=== PATIENT | male | born 1980 | race Caucasian/White ===

== ENCOUNTER → 2017-04-23 | Outpatient (CLI) | payer OTHER | END | disposition home or self-care (01) | LOC: PF 09:56 | PROVIDERS: ATTEND Surgery | DX: J44.9 Chronic obstructive pulmonary disease, unspecified (principal); I10 Essential (primary) hypertension; M48.06 Spinal stenosis, lumbar region; F43.10 Post-traumatic stress disorder, unspecified; F41.9 Anxiety disorder, unspecified; F31.9 Bipolar disorder, unspecified | CPT/HCPCS: 94060; 94729 ==

== ENCOUNTER 2017-05-14 17:34 | Emergency (ER) | payer OTHER ==
[~2017-05-14] VITALS: Ht 182.9 cm; Wt 104.3 kg
[2017-05-14] MEDS ORDERED: IV NORMAL SALINE 1000ML BAG 1,000 ML IV SCH (17:47)
[2017-05-14 17:58] LABS: BASO # 0.1 x10^3/uL (0.0-0.2); BASO % 1 % (0-3); EOS % 0 % (0-3); HEMATOCRIT 41.4 % (39.0-53.0); HEMOGLOBIN 13.5 g/dL (13.0-17.5); LYMPH % 6 % (24-48); MEAN CORPUSCULAR HEMOGLOBIN 25 pg (25-35); MEAN CORPUSCULAR HGB CONC 33 g/dL (31-37); MEAN CORPUSCULAR VOLUME 77 fL (79-100); MONO % 3 % (0-9); NEUT % 91 % (31-73); PLATELET COUNT 324 x10^3/uL (140-400); RED CELL DISTRIBUTION WIDTH 15.3 % (11.5-14.5); WHITE BLOOD COUNT 16.8 x10^3/uL (4.0-11.0)
[2017-05-14] MEDS ORDERED: 0.9 % SODIUM CHLORIDE 10 ML DISP.SYRIN. IV PRN (18:00)
--- NOTE | 2017-05-14 18:00 | PHYS DOC ---
Past Medical History Additional Past Medical Histor: history of psychiatric illness, prior history of pulmonary most him Past Surgical History: Lumbar Laminectomy Additional Past Surgical Histo: patient claims she's had surgical removal of saddle embolus Smoking: Quit Greater Than 1 Year Alcohol Use: None Drug Use: None, Opiates Adult General Chief Complaint Chief Complaint: SUBSTANCE ABUSE HPI GLYNN Whaley is a 36-year-old male with a history of chronic back pain as well as chronic psychiatric illness on lithium, lisinopril, clonazepam, diazepam, and warfarin who presents with difficulty being aroused today while at home. He does have a history according to the family of opiate abuse in the past. When EMS arrived to the scene they immediately gave him Narcan which took him from a GCS of 32 GCS of 15. Patient immediately became tachycardic and mildly diaphoretic and very agitated. The patient denies any opiate abuse he is still taking oral hydrocodone for his back pain. He denies missed taking or taking any extra today. He denies any abdominal pain, or eye symptoms, fevers, chills but he does admit to some nausea without vomiting diarrhea without loose mucus or blood. Patient denies any drug abuse. He is been taking his medications religiously has any change of urinary output. My differential diagnosis for this altered mental status includes but not limited to toxidrome secondary to lithium, opiate overdose, polypharmacy drug abuse, hypoxia, tachycardia dysrhythmia, bradycardia dysrhythmia, close head injury, recurrent pulmonary PE, medication abuse, medication side effect, hypoglycemia, upper glycemia accommodations of hyperglycemia. Bradycardia, hypotension, and SUPERVISING FILM OR VIDEOTAPE EDITOR infection. His father and his arrived later in the afternoon to provide more history. The patient has barely been at the home in care of the kids but the air conditioning spelled out. The via mini denies that he's been taking extra medications in fact they Take him off all narcotics altogether. He's never had a liver problem before he does not drink alcohol is not had an issue with changes in medications. Family denies recent trauma. They did note that her last several days has become increasingly sleepy. Review of Systems Review of Systems Constitutional: Denies fever or chills [] Eyes: Denies change in visual acuity, redness, or eye pain [] HENT: Denies nasal congestion or sore throat [] Respiratory: Denies cough or shortness of breath [] Cardiovascular: No additional information not addressed in HPI [] GI he does complain of nausea without vomiting diarrhea without blood in the stools. : Denies dysuria or hematuria [] Musculoskeletal: He Complains of chronic lower back pain or typically treats with oral narcotics. Integument: Denies rash or skin lesions [] Neurologic: Denies headache, focal weakness or sensory changes [] Endocrine: Denies polyuria or polydipsia [] Current Medications Current Medications Current Medications Medications (Trade) Dose Ordered Sig/Praneeth Start Time Stop Time Status Last Admin Dose Admin Enoxaparin Sodium (Lovenox 100mg Syringe) 100 mg 1X ONCE 05/14/17 20:45 05/14/17 20:46 UNV Lactulose 20 gm PRN DAILY PRN 05/14/17 19:15 05/14/17 20:03 20 GM Sodium Chloride 1,000 ml @ 125 mls/hr 1X ONCE 05/14/17 19:30 05/15/17 03:29 05/14/17 20:03 125 MLS/HR Sodium Chloride (Normal Saline Flush) 10 ml QSHIFT PRN 05/14/17 18:00 Allergies Allergies Allergies Coded Allergies Type Severity Reaction Last Updated Verified tramadol Allergy Severe 05/14/17 Yes Physical Exam Physical Exam He is noted to be mildly tachypnea tachycardic Constitutional: Patient is obese poorly nourished dry on appearance he seems intoxicated but easily arousable. HENT: Normocephalic, atraumatic, bilateral external ears normal, oropharynx is very dry no oral exudates, nose normal. [] Eyes: PERRLA, EOMI, conjunctiva normal, no discharge. [] Neck: Normal range of motion, no tenderness, supple, no stridor. [] Cardiovascular:Heart rate regular rhythm, no murmur [] Lungs & Thorax: Bilateral breath sounds clear to auscultation [] Abdomen: Bowel sounds normal, soft, no tenderness, no masses, no pulsatile masses. [] Skin: Warm, dry, no erythema, no rash. Patient has multiple injuries and wounds to his lower legs bilaterally. In various states of healing Back: No tenderness, no CVA tenderness. [] Extremities: No tenderness, no cyanosis, no clubbing, ROM intact, no edema. [] Neurologic: Alert and oriented X 3, normal motor function, normal sensory function, no focal deficits noted. [] Psychologic patient is very slow to respond he has a depressed affect Current Patient Data Vital Signs Vital Signs Date Time Temp Pulse Resp B/P (MAP) Pulse Ox O2 Delivery O2 Flow Rate FiO2 05/14/17 17:34 99.4 140 16 131/64 (86) 93 Room Air 99.4 Lab Values Laboratory Tests Test 05/14/17 17:45 05/14/17 18:02 05/14/17 19:50 White Blood Count 16.8 x10^3/uL (4.0-11.0) H Red Blood Count 5.40 x10^6/uL (4.30-5.70) Hemoglobin 13.5 g/dL (13.0-17.5) Hematocrit 41.4 % (39.0-53.0) Mean Corpuscular Volume 77 fL (79-100) L Mean Corpuscular Hemoglobin 25 pg (25-35) Mean Corpuscular Hemoglobin Concent 33 g/dL (31-37) Red Cell Distribution Width 15.3 % (11.5-14.5) H Platelet Count 324 x10^3/uL (140-400) Neutrophils (%) (Auto) 91 % (31-73) H Lymphocytes (%) (Auto) 6 % (24-48) L Monocytes (%) (Auto) 3 % (0-9) Eosinophils (%) (Auto) 0 % (0-3) Basophils (%) (Auto) 1 % (0-3) Neutrophils # (Auto) 15.2 x10^3uL (1.8-7.7) H Lymphocytes # (Auto) 1.0 x10^3/uL (1.0-4.8) Monocytes # (Auto) 0.5 x10^3/uL (0.0-1.1) Eosinophils # (Auto) 0.0 x10^3/uL (0.0-0.7) Basophils # (Auto) 0.1 x10^3/uL (0.0-0.2) Segmented Neutrophils % 57 % (35-66) Band Neutrophils % 23 % (0-9) H Lymphocytes % 13 % (24-48) L Monocytes % 5 % (0-10) Eosinophils % 1 % (0-5) Myelocytes % 1 % (0-0) H Platelet Estimate Adequate (ADEQUATE) Microcytosis Slight Prothrombin Time 21.4 SEC (11.7-14.0) H Prothrombin Time INR 2.0 (0.8-1.1) H PTT 49 SEC (24-38) H Sodium Level 140 mmol/L (136-145) Potassium Level 3.7 mmol/L (3.5-5.1) Chloride Level 102 mmol/L (98-107) Carbon Dioxide Level 25 mmol/L (21-32) Anion Gap 13 (6-14) Blood Urea Nitrogen 10 mg/dL (8-26) Creatinine 1.9 mg/dL (0.7-1.3) H Estimated GFR (Cockcroft-Gault) 39.9 BUN/Creatinine Ratio 5 (6-20) L Glucose Level 270 mg/dL (70-99) H Calcium Level 9.1 mg/dL (8.5-10.1) Magnesium Level 2.0 mg/dL (1.8-2.4) Total Bilirubin 0.3 mg/dL (0.2-1.0) Aspartate Amino Transferase (AST) 83 U/L (15-37) H Alanine Aminotransferase (ALT) 83 U/L (16-63) H Alkaline Phosphatase 81 U/L (46-116) Ammonia 61 mcmol/L (11-34) H Total Protein 7.2 g/dL (6.4-8.2) Albumin 3.8 g/dL (3.4-5.0) Albumin/Globulin Ratio 1.1 (1.0-1.7) Salicylates Level < 2.8 mg/dL (2.8-20.0) L Salicylate Last Dose Date Salicylate Last Dose Time Acetaminophen Level < 2 mcg/ml (10-30) L Acetaminophen Last Dose Date Acetaminophen Last Dose Time [place] Level < 0.2 mmol/L (0.6-1.2) L [place] Last Dose Date [place] Last Dose Time Ethyl Alcohol Level < 10 mg/dL (0-10) Urine Collection Type Unknown Urine Color Yellow Urine Clarity Clear Urine pH 5.0 Urine Specific [place] 1.010 Urine Protein 30 mg/dL (NEG-TRACE) Urine Glucose (UA) 100 mg/dL (NEG) Urine Ketones (Stick) Negative mg/dL (NEG) Urine Blood Negative (NEG) Urine Nitrite Negative (NEG) Urine Bilirubin Negative (NEG) Urine Urobilinogen Dipstick 0.2 mg/dL (0.2 mg/dL) Urine Leukocyte Esterase Negative (NEG) Urine RBC 0 /HPF (0-2) Urine WBC 1-4 /HPF (0-4) Urine Transitional Epithelial Cells Few /LPF Urine Bacteria 0 /HPF (0-FEW) Urine Hyaline Casts Moderate /HPF Urine Granular Casts Few /HPF Urine Mucus Mod /LPF Urine Opiates Screen Neg (NEG) Urine Methadone Screen Neg (NEG) Urine Barbiturates Neg (NEG) Urine Phencyclidine Screen Neg (NEG) Urine Amphetamine/Methamphetamine Neg (NEG) Urine Benzodiazepines Screen Neg (NEG) Urine Cocaine Screen Neg (NEG) Urine Cannabinoids Screen Neg (NEG) Urine Ethyl Alcohol Neg (NEG) Lactic Acid Level 1.8 mmol/L (0.4-2.0) Laboratory Tests 05/14/17 17:45 Laboratory Tests 05/14/17 17:45 EKG EKG [] KG timed 1738 05/14/[address] Navarro demonstrated heart rate of 143 looks like sinus tachycardia to me with P waves and QRS there is normal QT is 326 QTC is elevated at 509. There is some nonspecific ST segment depression in the anterior leads specifically lead to V2 V3 is may be rate related. Radiology/Procedures Radiology/Procedures [] Course & Med Decision Making Course & Med Decision Making Pertinent Labs and Imaging studies reviewed. (See chart for details) arrival altered mental status was originally treated to polypharmacy upper dose possibly opiates. But after history and physical findings I'm concerned more of an encephalopathic appearance. All patient is unable to give me much history as I will complete a CAT scan. Time is now 7:10 PM family's vital signs were improved with fluids his tachycardia down from 140-108 he'll be given more fluids. His oral dehydration seems improved. His mentation is also improved it is apparent that his ammonia levels elevated at 61 which could be concerning to his symptoms. He is taking healthy a mildly elevated as well although there is no obvious signs of hepatic failure. Patient's BUN/creatinine also mildly elevated likely secondary to the heat exposure he suffered from the last 2 days with house that was not well air condition. Patient normally drinks 6-8 glasses of lemon water daily but the has noted that he had not been consuming as much lately. Concern for lithium toxicity lithium level is actually below measurable level is not likely to bring to his symptoms. At this time we will dose of lactulose to see if that improves his mentation completed a head CT and admitted to the hospital until his encephalopathy improved. He's had no documented fever we may need to initiate a lumbar puncture to ensure that there is no infectious etiology causing his mentation changes. On physical exam he does not demonstrate a Kernig's or Burzynski sign although that is not sensitive and specific to rule out meningitis. []Sorting Livestock Worker note: Internal medicine Sorting Livestock Worker called at of the service 7:10 Consult called back at 7:12 PM Discussed the case I presented and they agreed with admission. Time of acceptance 7:12. At approximate 720 despite discussion of an inpatient admission family is asked to transfer this patient to . Primary reason is at all this medications and medical problems and addressed in the past at and they would prefer to go there. Apparently during the transportation via EMS from the home EMS told the family that we would stabilize the patient in transfer at their instruction to . I subsequently do not problem with this patient as he was stabilized vital signs were improved he still somewhat somnolent. He is going to get the lactulose and a CT scan of his head and chest x-ray before leaving. I'm is now [id number] transfer center as been contacted for transfer. He is transferred to call me back at 8:15 PM and they have accepted this patient to their service. Physical evaluation I completed an ABG to make sure the patient is oxygen well although his oxygen saturation on 2 L nasal cannula is been anywhere from 90-96 % is pH is low at 7.31 is PCO2 is high at 54 his PO2 is 77 his base excess is 0 his bicarbonate was 27 his O2 saturation is 94%. Unclear about the cause of this acidosis. Given the fact that his anion gap is normal. Is no obvious evidence of ethanol in his system, other alcohols in his system, his lactic acid is still pending at this time he has not no history of diabetes but this could be starvation ketosis alcohol associated ketosis, aspirin, ingestion polyethylene glycol, chronic kidney disease. Patient is still is persistently tachycardic despite receiving is now a second liter fluids. In conjunction with the fact these on the low end of therapeutic with his INR level of 2.0 the question remains as if he has another pulmonary most was causing some oxygen exchange issues. Given his continued acidosis beside not having hypoxia on exam. The consideration of giving him subcutaneous Lovenox to bridge him was considered. Patient will not be eligible for CT angiogram of the chest given his elevated creatinine 1.9. But maybe asked for several liters of fluid and a repeat creatinine check he might be able to get a CT scan of the chest reassures that he does not have a recurrent pulmonary most. 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 Lungs looked well-inflated is mildly elevated hemidiaphragm on the right. Otherwise no specific findings. At this time will be transferred to after subcutaneous Lovenox given we will report this to the transfer team. I spent approximately 45-50 minutes working and engaged directly in the patient care providing critical care evaluation this includes but not limited to time spent engaged in work directly related to the individual patients care. I spent time at the bedside, reviewing test results, discussing the case with staff, documenting the medical record and time spent with EMS discussing specific treatment issues when the patient presented and during his evaluation Patient been accepted by and his hemoglobin and stable this time again the persistent tachycardia makes me concerned for possible reoccurrence of his pulmonary most. Although his INR is 2.0 he will really require a repeat scan but he will be treated with Lovenox E to protect him from PE further propagation.. Dragon Disclaimer Dragon Disclaimer This electronic medical record was generated, in whole or in part, using a voice recognition dictation system. Departure Departure Impression: Primary Impression: Altered mental status Additional Impressions: Hepatic encephalopathy Dehydration Renal insufficiency Tachycardia Disposition: 02 TRANSFER [facility] Condition: GUARDED Referrals: NON,STAFF (PCP) Problem Qualifiers ALEJANDRA NAVARRO MD May 14, 2017 18:00
[2017-05-14 18:15] LABS: BILIRUBIN,URINE NEGATIVE (NEG); GLUCOSE,URINE 100 mg/dL (NEG); NITRITE,URINE NEGATIVE (NEG); PROTEIN,URINE 30 mg/dL (NEG-TRACE); UROBILINOGEN,URINE 0.2 mg/dL (0.2 mg/dL)
[2017-05-14 18:23] LABS: BARBITURATES NEG (NEG); BENZODIAZEPINES NEG (NEG); CANNABINOIDS NEG (NEG); COCAINE NEG (NEG); METHADONE NEG (NEG); OPIATES NEG (NEG); PHENCYCLIDINE NEG (NEG)
[2017-05-14 18:25] LABS: PROTHROMBIN TIME PATIENT 21.4 SEC (11.7-14.0)
[2017-05-14 18:26] LABS: CALCIUM 9.1 mg/dL (8.5-10.1); CREATININE 1.9 mg/dL (0.7-1.3); GFR 39.9; POTASSIUM 3.7 mmol/L (3.5-5.1)
[2017-05-14 18:28] LABS: LI < 0.2 mmol/L (0.6-1.2)
[2017-05-14 18:30] LABS: ETHANOL < 10 mg/dL (0-10)
[2017-05-14 18:32] LABS: ALBUMIN 3.8 g/dL (3.4-5.0); ALBUMIN/GLOBULIN RATIO 1.1 (1.0-1.7); TOTAL BILIRUBIN 0.3 mg/dL (0.2-1.0); TOTAL PROTEIN 7.2 g/dL (6.4-8.2)
[2017-05-14 18:32] LABS: BACTERIA,URINE 0 /HPF (0-FEW); RBC,URINE 0 /HPF (0-2)
--- NOTE | 2017-05-14 18:43 | EKG ---
[facility] [address] [place] [address] Test Date: 2017-05-14 Test Time: 17:38:31 Pat Name: SHERITA LINDSAY Department: Room: Gender: M Manager Property: : 1980 Requested By: ALEJANDRA NAVARRO Order Number: [id number] Reading MD: Darin Shoemaker Measurements Intervals [place] Rate: 143 P: OR: QRS: 54 QRSD: 90 T: 26 QT: 326 QTc: 509 Interpretive Statements ATRIAL FIB./FLUTTER WITH RAPID VENTRICULAR RESPONSE INDETERMINATE AXIS NON SPECIFIC T ABNORMALITY NON SPECIFIC ST DEPRESSION Electronically Signed On 05-26-2017 14:30:27 CDT by Darin Shoemaker
[2017-05-14 19:03] LABS: % EOS 1 % (0-5)
[2017-05-14 19:05] LABS: MICROCYTOSIS SLIGHT; PLT ESTIMATE ADEQUATE (ADEQUATE)
[2017-05-14] MEDS ORDERED: DOCU-153 PO (19:05)
[2017-05-14] MEDS ORDERED: WARF2TAB7 PO (19:07)
[2017-05-14] MEDS ORDERED: TEMA15CA PO (19:07)
[2017-05-14] MEDS ORDERED: LITH300C PO (19:07)
[2017-05-14] MEDS ORDERED: LISI-338 PO (19:07)
[2017-05-14] MEDS ORDERED: VENL37.56 PO (19:07)
[2017-05-14] MEDS ORDERED: CLON0.5T3 PO (19:08)
[2017-05-14] MEDS ORDERED: IPRA4AER IH (19:08)
[2017-05-14] MEDS ORDERED: BUDE10.2 IH (19:08)
[2017-05-14] MEDS ORDERED: LACTULOSE 20 GM/30 ML SOLUTION. PO PRN (19:15)
[2017-05-14] MEDS ORDERED: IV NORMAL SALINE 1000ML BAG 1,000 ML IV ONE (19:30)
--- NOTE | 2017-05-14 19:43 | PDOC ---
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 EMS brought him here, closes to home, Ammnia, 61, AST ALT 80s, non alcoholic no hx hepatitis, fmaily concerned about dark foul smelling urine, no UA yet, I did discuss possible causes like high Co2- ABG can be checke dand the high ammonia and for gi to see and at least get US abd. Doubt another pE as INR therapeuric and sats were never low, After my discussion with pt and family and ER MD and PE of my pt, they decide to transfer to as all records are there.Er hasrevisited family and pt will eventually trabsfer to at er level Pt was seen and examined by me and case was analyzed intensively with compelx MDM PE: drowsy but in no distress, big belly but no guarding, EHrat and lung and ext exam WNL NEuro intact, sleepy but wakes and oriented Fam Hx HTN PAst sx: chest sx for surgical removal of PE in 2011, recent back sx Allergic to tramadol PAst medcial; PE, chronic back pain, APAS A/P: 1. Acute encepahlopathy - etol;ogy to be determined 2. HIgh LFTs and ammonia 3. POssible UTI - UA pending 4. CHINO off cpap 5. Hx PE on warf with INR at goal 6. APAS 7. Obesity Plan - transfer to - pt not techincally admitted but seen and examined at ER LEOBARDO MCKEON MD May 14, 2017 19:43
--- NOTE | 2017-05-14 20:23 | RAD ---
CT HEAD WO CONTRAST Clinical indications: Altered mental status, substance abuse, no priors Technique: Noncontrast axial cross sectional scanning of the head was performed. Findings: No acute intracranial hemorrhage or midline shift or mass-effect or hydrocephalus or extra-axial fluid collection is seen. No focal hypodense area or sulci effacement is seen to indicate an acute infarct or edema radiographically. No skull fracture or pneumocephalus is seen. No opacification of the mastoid sinuses or the paranasal sinuses is seen. The maxillary sinuses are not completely seen in this study. Impression: No acute intracranial abnormality is seen. PQRS compliance Statement One or more of the following individualized dose reduction techniques were utilized for this study: 1. Automated exposure control 2. Adjustment of the mA and/or kV according to patient size 3. Use of iterative reconstruction technique Electronically signed by: Alok Valencia MD (05/14/2017 8:19 PM) [facility]
[2017-05-14 20:37] VITALS: BP 111/55
[2017-05-15 01:21] LABS: HCO3 ABG 27 mmol/L (21-28); PCO2 ABG 54 mmHg (35-46); PH ABG 7.32 (7.35-7.45); PO2 ABG 78 mmHg (85-108); SAT O2 ABG 94 % (92-99)
--- NOTE | 2017-05-15 07:58 | RAD ---
Indication change in mental status. Protocol study. A single view of the chest was obtained. No prior imaging of the chest is available. Postoperative changes are noted. Heart size is within normal limits. There is no congestive heart failure or focal infiltrate. There are suspect tiny bilateral pleural effusions. IMPRESSION: No acute or focal process in the chest. Suspect tiny pleural effusions
--- NOTE | 2017-05-15 16:17 | EKG ---
[facility] [address] [place] [address] Test Date: 2017-05-14 Test Time: 20:53:27 Pat Name: SHERITA LINDSAY Department: Room: Gender: M Drugless Doctor: : 1980 Requested By: ALEJANDRA NAVARRO Order Number: [id number] Reading MD: Darin Shoemaker Measurements Intervals [place] Rate: 107 P: 70 DE: 112 QRS: 24 QRSD: 90 T: 51 QT: 356 QTc: 475 Interpretive Statements SINUS TACHYCARDIA Electronically Signed On 05-26-2017 14:31:14 CDT by Darin Shoemaker
== END 2017-05-14 21:36 | disposition short-term general hospital (02) ==
LOC: ER 17:34
DX: R41.82 Altered mental status, unspecified (principal); K72.90 Hepatic failure, unspecified without coma; E86.0 Dehydration; N28.9 Disorder of kidney and ureter, unspecified; R00.0 Tachycardia, unspecified; R61 Generalized hyperhidrosis; G89.29 Other chronic pain; M54.5 Low back pain; R11.0 Nausea; R06.82 Tachypnea, not elsewhere classified; F11.10 Opioid abuse, uncomplicated; E66.9 Obesity, unspecified; Z68.31 Body mass index [BMI] 31.0-31.9, adult; Z87.891 Personal history of nicotine dependence; Z79.899 Other long term (current) drug therapy; Z79.84 Long term (current) use of oral hypoglycemic drugs; Z88.5 Allergy status to narcotic agent
CPT/HCPCS: 36415; 36600; 70450; 71010; 80053; 80178; 80307; 80329; 81001; 82140; 82805; 83605; 83735; 85007; 85027; 85610; 85730; 87040; 93005; 96360; 96361; 96372; 99285; G0480; J1650; J7030; 80305; G0481; G0479

== ENCOUNTER 2017-07-24 15:21 | Emergency (ER) | payer OTHER ==
[~2017-07-24] VITALS: Ht 177.8 cm; Wt 99.8 kg
[~2017-07-24 15:21] MED LIST: BUDE10.2 IH; CLON0.5T3 PO; DOCU-153 PO; IPRA4AER IH; LISI-338 PO; LITH300C PO; TEMA15CA PO; VENL37.56 PO; WARF2TAB7 PO
[2017-07-24 16:00] LABS: BASO # 0.1 x10^3/uL (0.0-0.2); BASO % 1 % (0-3); EOS % 0 % (0-3); HEMATOCRIT 43.2 % (39.0-53.0); HEMOGLOBIN 14.6 g/dL (13.0-17.5); LYMPH # 1.4 x10^3/uL (1.0-4.8); LYMPH % 17 % (24-48); MEAN CORPUSCULAR HEMOGLOBIN 25 pg (25-35); MEAN CORPUSCULAR HGB CONC 34 g/dL (31-37); MEAN CORPUSCULAR VOLUME 74 fL (79-100); MONO % 4 % (0-9); NEUT % 77 % (31-73); PLATELET COUNT 393 x10^3/uL (140-400); RED BLOOD COUNT 5.87 x10^6/uL (4.30-5.70); RED CELL DISTRIBUTION WIDTH 15.4 % (11.5-14.5)
[2017-07-24] MEDS ORDERED: LORazepam 1 MG TABLET PO ONE (16:00)
[2017-07-24 16:08] LABS: INR 2.6 (0.8-1.1); PROTHROMBIN TIME PATIENT 26.2 SEC (11.7-14.0)
[2017-07-24 16:17] LABS: CALCIUM 9.3 mg/dL (8.5-10.1); CREATININE 0.8 mg/dL (0.7-1.3); GFR 107.6; POTASSIUM 3.9 mmol/L (3.5-5.1)
[2017-07-24 16:29] LABS: ALBUMIN 3.9 g/dL (3.4-5.0); ALBUMIN/GLOBULIN RATIO 0.8 (1.0-1.7); TOTAL BILIRUBIN 0.3 mg/dL (0.2-1.0); TOTAL PROTEIN 8.5 g/dL (6.4-8.2)
[2017-07-24 16:59] VITALS: BP 140/73
--- NOTE | 2017-07-24 17:09 | PHYS DOC ---
Past Medical History Past Medical History: Anxiety, Asthma, Bipolar, Depression, Diabetes-Type II, Other Additional Past Medical Histor: history of psychiatric illness, PE Past Surgical History: Lumbar Laminectomy, Other Additional Past Surgical Histo: CHEST SX - SADDLE PE REMOVED FROM LUNGS, L ANKLE, BACK SX Alcohol Use: None Drug Use: None Social History Narrative: DENIES Adult General Chief Complaint Chief Complaint: CHEST PAIN HPI HPI Patient is a 37 year old male with history of anxiety, bipolar disorder DVT who presents with chest pain since last night. Chest pain is described sharp, parasternal persist deep breathing. Patient also reports increased anxiety. Denies shortness breath, nauseousness, vomiting and sweats. Denies abdominal pain. Patient last took Klonopin last evening. Denies new medications or missed medications. Patient also has chronic back pain took his pain medication this morning. No fever chills or sweats. No leg pain or swelling.. No other acute symptoms or complaints. Review of Systems Review of Systems Review symptoms as per history of present illness. All other review symptoms are negative. Current Medications Current Medications Current Medications Medications (Trade) Dose Ordered Sig/Praneeth Start Time Stop Time Status Last Admin Dose Admin Lorazepam (Ativan) 2 mg 1X ONCE 07/24/17 16:00 07/24/17 16:01 DC 07/24/17 15:54 2 MG Allergies Allergies Allergies Coded Allergies Type Severity Reaction Last Updated Verified tramadol Allergy Severe 05/14/17 Yes theophylline Allergy Intermediate 07/24/17 Yes Physical Exam Physical Exam Constitutional: Well developed, well nourished, no acute distress, non-toxic appearance. [] HENT: Normocephalic, atraumatic, bilateral external ears normal, oropharynx moist, no oral exudates, nose normal. [] Eyes: PERRLA, EOMI, conjunctiva normal, no discharge. [] Neck: Normal range of motion, no tenderness, supple, no stridor. [] Cardiovascular:Heart rate regular rhythm, no murmur [] Lungs & Thorax: Bilateral breath sounds clear to auscultation [] Abdomen: Bowel sounds normal, soft, no tenderness, no masses, no pulsatile masses. [] Skin: Warm, dry, no erythema, no rash. [] Back: No tenderness. [] Extremities: No tenderness, no cyanosis, no clubbing, ROM intact, no edema. [] Neurologic: Alert and oriented X 3. [] Psychologic: Affect normal, judgement normal, mood normal. [] Current Patient Data Vital Signs Vital Signs Date Time Temp Pulse Resp B/P (MAP) Pulse Ox O2 Delivery O2 Flow Rate FiO2 07/24/17 16:59 96 140/73 (95) 96 Room Air 07/24/17 15:24 98.0 20 98.0 Lab Values Laboratory Tests Test 07/24/17 15:35 White Blood Count 8.0 x10^3/uL (4.0-11.0) Red Blood Count 5.87 x10^6/uL (4.30-5.70) H Hemoglobin 14.6 g/dL (13.0-17.5) Hematocrit 43.2 % (39.0-53.0) Mean Corpuscular Volume 74 fL (79-100) L Mean Corpuscular Hemoglobin 25 pg (25-35) Mean Corpuscular Hemoglobin Concent 34 g/dL (31-37) Red Cell Distribution Width 15.4 % (11.5-14.5) H Platelet Count 393 x10^3/uL (140-400) Neutrophils (%) (Auto) 77 % (31-73) H Lymphocytes (%) (Auto) 17 % (24-48) L Monocytes (%) (Auto) 4 % (0-9) Eosinophils (%) (Auto) 0 % (0-3) Basophils (%) (Auto) 1 % (0-3) Neutrophils # (Auto) 6.1 x10^3uL (1.8-7.7) Lymphocytes # (Auto) 1.4 x10^3/uL (1.0-4.8) Monocytes # (Auto) 0.3 x10^3/uL (0.0-1.1) Eosinophils # (Auto) 0.0 x10^3/uL (0.0-0.7) Basophils # (Auto) 0.1 x10^3/uL (0.0-0.2) Prothrombin Time 26.2 SEC (11.7-14.0) H Prothrombin Time INR 2.6 (0.8-1.1) H Sodium Level 142 mmol/L (136-145) Potassium Level 3.9 mmol/L (3.5-5.1) Chloride Level 105 mmol/L (98-107) Carbon Dioxide Level 26 mmol/L (21-32) Anion Gap 11 (6-14) Blood Urea Nitrogen 10 mg/dL (8-26) Creatinine 0.8 mg/dL (0.7-1.3) Estimated GFR (Cockcroft-Gault) 107.6 BUN/Creatinine Ratio 13 (6-20) Glucose Level 118 mg/dL (70-99) H Calcium Level 9.3 mg/dL (8.5-10.1) Total Bilirubin 0.3 mg/dL (0.2-1.0) Aspartate Amino Transferase (AST) 21 U/L (15-37) Alanine Aminotransferase (ALT) 27 U/L (16-63) Alkaline Phosphatase 77 U/L (46-116) Total Protein 8.5 g/dL (6.4-8.2) H Albumin 3.9 g/dL (3.4-5.0) Albumin/Globulin Ratio 0.8 (1.0-1.7) L Laboratory Tests 07/24/17 15:35 Laboratory Tests 07/24/17 15:35 EKG EKG [EKG: Sinus tach, rate 104, no acute ST-T wave changes.] Radiology/Procedures Radiology/Procedures [] Course & Med Decision Making Course & Med Decision Making Pertinent Labs and Imaging studies reviewed. (See chart for details) [Reproducible chest wall pain. Symptoms improved with treatment of anxiety. Patient does have history of DVT. Denies increased leg pain or swelling. INR is therapeutic. Patient denies hypoxia or shortness of breath. Lab work otherwise unremarkable. Recommend supportive care with PCP follow-up. Return precautions reviewed.] Dragon Disclaimer Dragon Disclaimer This electronic medical record was generated, in whole or in part, using a voice recognition dictation system. Departure Departure Impression: Primary Impression: Chest pain Additional Impression: Anxiety state Disposition: 01 HOME, SELF-CARE Condition: GOOD Patient Instructions: Anxiety and Panic Attacks, [id number], Chest Pain ( Nonspecific), [id number] Additional Instructions: You were evaluated in the emergency department for chest pain. An EKG, lab work were obtained and are normal. Your INR is therapeutic. The exact cause of your symptoms has not been determined but may be related to anxiety. Problem Qualifiers JIMMY SRIVASTAVA DO Jul 24, 2017 17:09
--- NOTE | 2017-07-25 07:45 | EKG ---
[facility] [address] [place] [address] Test Date: 2017-07-24 Test Time: 15:30:42 Pat Name: SHERITA LINDSAY Department: Room: Gender: M Recruiter Coordinator: : 1980 Requested By: JIMMY SRIVASTAVA Order Number: [id number] Reading MD: Measurements Intervals [place] Rate: 104 P: 60 FL: 154 QRS: 64 QRSD: 78 T: 68 QT: 328 QTc: 437 Interpretive Statements SINUS TACHYCARDIA LEFT ATRIAL ABNORMALITY S1,S2,S3 PATTERN RI6.01 Unconfirmed report No previous ECG available for comparison
== END 2017-07-24 17:01 | disposition home or self-care (01) ==
LOC: ER 15:21
DX: R07.89 Other chest pain (principal); F41.9 Anxiety disorder, unspecified; F31.9 Bipolar disorder, unspecified; E11.9 Type 2 diabetes mellitus without complications; J45.909 Unspecified asthma, uncomplicated; Z86.711 Personal history of pulmonary embolism; Z86.718 Personal history of other venous thrombosis and embolism; Z88.5 Allergy status to narcotic agent; Z88.8 Allergy status to other drugs, medicaments and biological substances
CPT/HCPCS: 36415; 80053; 85025; 85610; 93005; 99285-25

== ENCOUNTER 2017-07-26 14:14 | Emergency (ER) | payer OTHER ==
[~2017-07-26] VITALS: Ht 177.8 cm; Wt 99.8 kg
[2017-07-26 14:35] VITALS: BP 158/91
[2017-07-26] MEDS ORDERED: HYDROcodone/APAP 5/325MG 1 TAB TABLET PO ONE (14:45)
--- NOTE | 2017-07-26 14:57 | RAD ---
Examination: 3 views of the left foot History: History of pain in the left second toe Comparison: None available Findings: The alignment of the tarsal bones grossly appears unremarkable.. Plate and screw fixation of the distal fibula identified. The alignment of the metatarsophalangeal grossly appears unremarkable. There is lateral displacement/subluxation of the distal phalanx of the second toe in relation to the middle phalanx. Impression: Lateral displacement/subluxation of the distal phalanx of the second toe in relation to the middle phalanx of the second toe.
[2017-07-26] MEDS ORDERED: BUPIVACAINE 0.5% 50 ML VIAL. IJ ONE (15:00)
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
[2017-07-26] MEDS ORDERED: HYDR-971 PO (15:39)
== END 2017-07-26 15:45 | disposition home or self-care (01) ==
LOC: ER 14:14
DX: S93.115A Dislocation of interphalangeal joint of left lesser toe(s), initial encounter (principal); J45.909 Unspecified asthma, uncomplicated; E11.9 Type 2 diabetes mellitus without complications; Z88.8 Allergy status to other drugs, medicaments and biological substances; W22.03XA Walked into furniture, initial encounter; Y93.89 Activity, other specified; Y92.89 Other specified places as the place of occurrence of the external cause; Y99.8 Other external cause status
CPT/HCPCS: 28660; 73630; J3490; 99284-25

== ENCOUNTER 2017-07-30 16:21 | Emergency (ER) | payer OTHER ==
[~2017-07-30] VITALS: Ht 177.8 cm; Wt 99.8 kg
[~2017-07-30 16:21] MED LIST changes: +HYDR-971 PO
[2017-07-30 16:25] VITALS: BP 151/79
--- NOTE | 2017-07-30 17:09 | RAD ---
Left second toe, 3 views, 07/30/2017: History: Injury Comparison is made to a study from 07/26/2017. There is persistent mild lateral and dorsal subluxation of the distal phalanx at the DIP joint level. There is widening of that joint space. No fracture is identified. IMPRESSION: Unchanged subluxation of the distal phalanx at the DIP joint.
[2017-07-30] MEDS ORDERED: HYDR-971 PO (17:34)
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
--- NOTE | 2017-07-31 07:54 | RAD ---
TOES LEFT Clinical Indication: post reduction second toe left Comparison: Toe radiographs from earlier the same day Findings: Interval splinting of the second digit. There is persistent lateral and dorsal subluxation/angulation of the second distal phalanx. No new fracture or malalignment. Redemonstration of fibular ORIF. IMPRESSION: Persistent lateral and dorsal subluxation/angulation of the second distal phalanx status post splinting.
== END 2017-07-30 17:51 | disposition home or self-care (01) ==
LOC: ER 16:21
DX: S93.105A Unspecified dislocation of left toe(s), initial encounter (principal); E11.9 Type 2 diabetes mellitus without complications; J45.909 Unspecified asthma, uncomplicated; F31.9 Bipolar disorder, unspecified; Z86.711 Personal history of pulmonary embolism; Z88.6 Allergy status to analgesic agent; Z88.8 Allergy status to other drugs, medicaments and biological substances; X58.XXXA Exposure to other specified factors, initial encounter; Y93.89 Activity, other specified; Y99.8 Other external cause status; Y92.89 Other specified places as the place of occurrence of the external cause
CPT/HCPCS: 28515; 73660; 99284-25